=== PATIENT | female | born 1970 | race Caucasian/White ===

== ENCOUNTER 2023-04-26 22:02 | Emergency (ER) | payer OTHER ==
[2023-04-26 22:07] VITALS: RESP 18; TEMP 97.6; BMI 24.1
[2023-04-27 03:20] VITALS: BP 118/81; PULSE 88
== END 2023-04-27 04:01 | disposition home or self-care (01) ==
LOC: JER 22:02
DX: F10.129 Alcohol abuse with intoxication, unspecified (principal); R11.10 Vomiting, unspecified; Y90.9 Presence of alcohol in blood, level not specified
CPT/HCPCS: 99283-25